=== PATIENT | male | born 1945 | race Caucasian/White ===

== ENCOUNTER 2022-07-11 10:45 | Emergency (ER) | payer OTHER ==
[~2022-07-11] VITALS: Ht 177.8 cm; Wt 99.8 kg
[~2022-07-11 10:45] MED LIST: ASPIRIN325 MG; ATENOLOL25 MG; CARVEDILOL3.125 MG PO; GLIPIZIDE XL5 MG; LISINOPRIL10 MG; NITROSTAT0.4 MG; SIMVASTATIN80 MG
[2022-07-11] MEDS ORDERED: AZOPT10 ML OD (11:43)
[2022-07-11] MEDS ORDERED: XALATAN2.5 ML OPTH (11:43)
[2022-07-11] MEDS ORDERED: GLUCOTROL XL5 MG PO (11:45)
[2022-07-11] MEDS ORDERED: TOPROL XL25 MG PO (11:46)
[2022-07-11] MEDS ORDERED: PROSCAR5 MG PO (11:47)
[2022-07-11] MEDS ORDERED: PACERONE200 MG PO (11:47)
[2022-07-11] MEDS ORDERED: LIPITOR80 MG GT (11:48)
[2022-07-11] MEDS ORDERED: IRON325 M1 PO (11:48)
[2022-07-11] MEDS ORDERED: FLOMAX0.4 MG PO (11:49)
[2022-07-11] MEDS ORDERED: BAYER CHEWABLE81 MG PO (11:49)
[2022-07-11] MEDS ORDERED: ELIQUIS5 MG PO (11:49)
[2022-07-11] MEDS ORDERED: SOAANZ20 MG PO (11:50)
== END 2022-07-11 13:24 | disposition short-term general hospital (02) ==
LOC: ED 10:45
DX: S82.841A Displaced bimalleolar fracture of right lower leg, initial encounter for closed fracture (principal); E11.9 Type 2 diabetes mellitus without complications; E78.5 Hyperlipidemia, unspecified; I10 Essential (primary) hypertension; I48.91 Unspecified atrial fibrillation; Z87.891 Personal history of nicotine dependence; Z88.0 Allergy status to penicillin; Z88.8 Allergy status to other drugs, medicaments and biological substances; Z79.899 Other long term (current) drug therapy; Z79.82 Long term (current) use of aspirin; W19.XXXA Unspecified fall, initial encounter
CPT/HCPCS: 27810; 73610; 87502; 99283-25; C9803; J2250; J2270; U0003